=== PATIENT | male | born 2000 | race Caucasian/White ===

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

== ENCOUNTER 2021-01-09 12:05 | Outpatient (CLI) | payer MEDICAID ==
[2021-01-09 18:12] LABS: BASOPHILS % (AUTO) 0.3 %; EOSINOPHILS # (AUTO) 0.1 10^3/uL (0.0-0.7); HCT - HEMATOCRIT 45.4 % (42.0-52.0); HGB - HEMOGLOBIN 15.4 g/dL (14.0-18.0); LYMPHOCYTES # (AUTO) 1.3 10^3/uL (1.5-3.5); LYMPHOCYTES % (AUTO) 22.1 %; MEAN CORPUSCULAR HEMOGLOBIN 31.2 pg (27.0-31.0); MEAN CORPUSCULAR HGB CONC 33.9 g/dL (32.0-36.0); MEAN CORPUSCULAR VOLUME 91.9 fL (80.0-94.0); MONOCYTES # (AUTO) 0.4 10^3/uL (0.0-1.0); MONOCYTES % (AUTO) 6.5 %; NEUTROPHILS # (AUTO) 4.2 10^3/uL (1.5-6.6); NEUTROPHILS % (AUTO) 69.8 %; PLT - PLATELET COUNT 181 10^3/uL (130-450); RED BLOOD COUNT 4.94 10^6/uL (4.70-6.10); RED CELL DISTRIBUTION WIDTH 11.9 % (12.0-15.0)
[2021-01-09 18:28] LABS: ALBUMIN 5.1 g/dL (3.2-5.5); BILIRUBIN,TOTAL 1.4 mg/dL (0.2-1.0); CALCIUM 9.8 mg/dL (8.5-10.3); CREATININE 0.7 mg/dL (0.6-1.2); POTASSIUM 3.7 mmol/L (3.5-5.0); TOTAL PROTEIN 7.6 g/dL (6.7-8.2)
[2021-01-09 18:42] LABS: THYROID STIMULATING HORMONE 1.32 uIU/mL (0.34-5.60)
[2021-01-09 18:44] LABS: FREE T3 3.5 pg/mL (2.5-3.9); FREE T4 (FREE THYROXINE) 0.99 ng/dL (0.58-1.64)
[2021-01-09 20:01] LABS: ESTIMATED AVERAGE GLUCOSE 105 mg/dL (70-100); HEMOGLOBIN A1c% 5.3 % (4.27-6.07)
== END 2021-01-09 12:06 | disposition home or self-care (01) ==
LOC: LAB.N 12:05
PROVIDERS: ATTEND Nurse Practitioner Family
DX: F41.1 Generalized anxiety disorder (principal); R11.10 Vomiting, unspecified; R53.81 Other malaise; R53.83 Other fatigue
CPT/HCPCS: 36415; 80053; 83036; 84439; 84443; 84481; 85025

== ENCOUNTER 2022-02-11 18:16 | Emergency (ER) | payer MEDICAID ==
[2022-02-11 18:24] VITALS: BP 138/78
[2022-02-11 19:51] LABS: B. PARAPERTUSSIS- RESP PCR PAN NOT DETECTED; B. PERTUSSIS- RESP PCR PANEL NOT DETECTED; C. PNEUMONIAE- RESP PCR PANEL NOT DETECTED; CORONAVIRUS 229E-RESP PCR NOT DETECTED; CORONAVIRUS HKU1-RESP PCR NOT DETECTED; CORONAVIRUS NL63-RESP PCR NOT DETECTED; CORONAVIRUS OC43-RESP PCR NOT DETECTED; HUMAN METAPNEUMOVIRUS NOT DETECTED; INFLUENZA A H3- RESP PCR PANEL DETECTED; INFLUENZA B - RESP PCR PANEL NOT DETECTED; M. PNEUMONIAE- RESP PCR PANEL NOT DETECTED; PARAINFLUENZA VIRUS 1 NOT DETECTED; PARAINFLUENZA VIRUS 2 NOT DETECTED; PARAINFLUENZA VIRUS 3 NOT DETECTED; PARAINFLUENZA VIRUS 4 NOT DETECTED; RHINOVIRUS/ENTEROVIRUS NOT DETECTED; RSV- RESP PCR PANEL NOT DETECTED; SARS-CoV-2 -RESP PCR PANEL NOT DETECTED
== END 2022-02-11 20:47 | disposition left against medical advice (07) ==
LOC: ED 18:16
DX: Z53.29 Procedure and treatment not carried out because of patient's decision for other reasons (principal); Z20.822 Contact with and (suspected) exposure to COVID-19
CPT/HCPCS: 87633

== ENCOUNTER 2022-02-13 11:01 | Outpatient (CLI) | payer MEDICAID | END 2022-02-13 11:02 | disposition EMS.NT | LOC: EMS 11:01 | DX: R10.31 Right lower quadrant pain (principal); R10.32 Left lower quadrant pain; R11.10 Vomiting, unspecified ==

== ENCOUNTER 2022-02-13 12:45 | Emergency (ER) | payer MEDICAID | END 2022-02-13 13:54 | disposition left against medical advice (07) | LOC: ED 12:45 | DX: Z53.21 Procedure and treatment not carried out due to patient leaving prior to being seen by health care provider (principal) ==

== ENCOUNTER 2022-09-26 20:33 | Emergency (ER) | payer MEDICAID ==
[2022-09-26 20:51] VITALS: BP 137/65
--- NOTE | 2022-09-26 22:00 | ED Physician Documentation ---
History of Present Illness - Stated complaint Stated Complaint: R FOOT PX/SWELLING - Chief complaint Chief Complaint: Ext Problem - History obtained from History obtained from: Patient - Additonal information Additional information: 21yM presents with intermittent R foot pain after kicking a chair 3 weeks ago, worse with ambulating. denies pain with rom, swelling or other injury. PD PAST MEDICAL HISTORY - Past Medical History Cardiovascular: None Respiratory: Asthma Neuro: None Endocrine/Autoimmune: None GI: None : None HEENT: None Psych: None Musculoskeletal: None Derm: None - Past Surgical History Past Surgical History: Yes HEENT: Tonsil/Adenoidectomy - Present Medications Home Medications: Ambulatory Orders Medication Instructions Recorded Confirmed Albuterol Sulfate [Ventolin Hfa] 18 gm IH PRN PRN 02/11/13 09/10/14 methocarbamoL [Robaxin] 500 mg PO TID PRN #15 tablet 06/06/19 Ibuprofen [Motrin] 600 mg PO Q6H PRN #20 tab 09/26/22 - Allergies Allergies/Adverse Reactions: Allergies Allergy/AdvReac Type Severity Reaction Status Date / Time No Known Drug Allergies Allergy Verified 09/26/22 20:50 - Social History Does the pt smoke?: No Smoking Status: Never smoker Does the pt drink ETOH?: No Does the pt have substance abuse?: No - Immunizations Immunizations are current?: Yes - POLST Patient has POLST: No PD ED PE NORMAL - Vitals Vital signs reviewed: Yes - General General: Alert and oriented X 3, No acute distress, Well developed/nourished - HEENT HEENT: Atraumatic, PERRL, EOMI - Derm Derm: Normal color, Warm and dry - Extremities Extremities: No deformity, No tenderness to palpate, Normal ROM s pain, Other (2+ DP and PT pulses) - Neuro Neuro: Alert and oriented X 3 - Psych Psych: Normal mood, Normal affect Results - Vitals Vitals: Vital Signs - 24 hr 09/26/22 20:48 Temperature 37 C Heart Rate 71 Respiratory 16 Rate Blood Pressure 137/65 H O2 Saturation 100 Oxygen O2 Source Room air PD Medical Decision Making - ED course ED course: 21yM p/w intermittent R foot pain X 3 weeks after kicking a chair. no evidence of fracture on xr wet read by ED physician. exam unremarkable, ambulatory without difficulty. jennie wrap applied and return precautions given. plan to f/u routinely with pcp. Departure - Departure Disposition: 01 Home, Self Care Clinical Impression: Foot injury Condition: Stable Instructions: ED RICE Prescriptions: Ibuprofen [Motrin] 600 mg PO Q6H PRN #20 tab PRN Reason: Pain Comments: You were seen in the emergency department for foot pain. Your xray did not show any breaks. Please follow the RICE instructions with the enclosed documents and follow-up with your primary care provider. Electronic prescription for extra strength ibuprofen was sent to [facility] in [place]. Please return to the emergency department if you have other concerns
--- NOTE | 2022-09-26 22:44 | XRAY Report ---
PROCEDURE: Foot 3 View RT INDICATIONS: foot inj TECHNIQUE: 3 views of the foot were acquired. COMPARISON: None. FINDINGS: Bones: No definite fractures or dislocations. No suspicious bony lesions. Soft tissues: No suspicious soft tissue calcifications or masses. IMPRESSION: 1. No definite fracture or dislocation. Reviewed by: August Lay MD on 09/26/2022 10:43 PM PDT Approved by: August Lay MD on 09/26/2022 10:43 PM PDT Station ID: [id number]
== END 2022-09-26 22:00 | disposition home or self-care (01) ==
LOC: ED 20:33
DX: S99.921A Unspecified injury of right foot, initial encounter (principal); W22.03XA Walked into furniture, initial encounter; Y93.89 Activity, other specified
CPT/HCPCS: 99283